=== PATIENT | male | born 1950 | race Caucasian/White ===

== ENCOUNTER 2021-11-06 17:15 | Inpatient (IN) | payer MEDICARE, OTHER ==
[~2021-11-06] VITALS: Ht 172.7 cm; Wt 169.3 kg
[2021-11-06] MEDS ORDERED: QUET25TA PO (17:29)
[2021-11-06] MEDS ORDERED: APIX5TAB PO (17:29)
[2021-11-06] MEDS ORDERED: FERR325T28 PO (17:29)
[2021-11-06] MEDS ORDERED: TAMS-3 PO (17:29)
[2021-11-06] MEDS ORDERED: CARV3.122 PO (17:29)
[2021-11-06] MEDS ORDERED: DOXY-326 PO (17:29)
[2021-11-06] MEDS ORDERED: QUET50TA PO (17:29)
[2021-11-06] MEDS ORDERED: ESCI10TA PO (17:29)
[2021-11-06] MEDS ORDERED: POTA10CA43 PO (17:29)
[2021-11-06] MEDS ORDERED: FURO-151 PO (17:29)
[2021-11-06] MEDS ORDERED: FUROSEMIDE 20 MG/2 ML VIAL IVP ONE (17:30)
[2021-11-06 17:47] LABS: HEMATOCRIT 33.8 % (36.7-47.1); MEAN CORPUSCULAR HEMOGLOBIN 28.3 uug (23.8-33.4); MEAN CORPUSCULAR VOLUME 86.4 fL (73.0-96.2); PLATELET COUNT (AUTO) 231 K/uL (152-348)
[2021-11-06 17:56] LABS: CARBON DIOXIDE 36 mmol/L (21-32); CHLORIDE 96 mmol/L (98-107); CREATININE 0.9 mg/dL (0.6-1.3); GLUCOSE 102 mg/dL (74-106); UREA NITROGEN, BLOOD 14 mg/dL (7-18)
[2021-11-06 18:09] LABS: ALANINE AMINOTRANSFERASE 28 U/L (16-63); ALKALINE PHOSPHATASE 275 U/L (50-136); ASPARTATE AMINOTRANSFERASE 36 U/L (15-37); BILIRUBIN,DIRECT 0.7 mg/dL (0.0-0.2); BILIRUBIN,TOTAL 1.1 mg/dL (0.2-1.0); TOTAL PROTEIN, SERUM 6.4 g/dL (6.4-8.2)
[2021-11-06] MEDS ORDERED: FUROSEMIDE 40 MG/4 ML VIAL ONE (18:09)
[2021-11-06] MEDS ORDERED: FUROSEMIDE 40 MG/4 ML VIAL IV ONE (18:30)
[2021-11-06] MEDS ORDERED: FUROSEMIDE 20 MG/2 ML VIAL ONE (18:40)
--- NOTE | 2021-11-06 19:00 | NUR ---
Assumed care of patient from day shift nurse. Patient AAOx3. In no aparent distress. On O2 aqt 2LPM via NC in place. Denies any SOB. O2 sat at 95%.
--- NOTE | 2021-11-06 19:44 | NUR ---
Incontinent care provided. Patient appears comfortable. Still with audible wheezing noted.
[2021-11-06] MEDS ORDERED: MAGNESIUM HYDROXIDE 30 ML LIQUID UDC PO PRN (20:30)
[2021-11-06] MEDS ORDERED: ONDANSETRON 4 MG/2 ML VIAL IV PRN (20:30)
[2021-11-06] MEDS ORDERED: NITROGLYCERIN 0.4 MG/TAB BOTTLE SL PRN (20:30)
[2021-11-06] MEDS ORDERED: ENOXAPARIN SODIUM 40 MG/0.4 ML DISP.SYRIN SQ SCH (20:30)
--- NOTE | 2021-11-06 20:50 | NUR ---
Pt. admitted to Telemetry unit room 302, under care of Dr. Joshi. Report given to RICCARDO Mujica. Belongs List completed.
[2021-11-06 21:00] VITALS: BP 124/82
[2021-11-06] MEDS: QUETIAPINE FUMARATE 25 MG TABLET PO SCH (21:22)
[2021-11-07] VITALS: BP_SYST 120; BP_SYST 133; BP_DIAS 57; BP_DIAS 79
--- NOTE | 2021-11-07 04:07 | NUR ---
PATIENT ON O2 @ 2L/M NC , EKG X 2 WAS DONE , PT HAD ORDER FOR BI/PAP AT [facility], ORDER SHOWING 13/12, ,RT PLACED PT ON R14, FIO2 @ 30%, TELLING CASTRO Bro WITH WITH XL MASK, VERY COOPERATIVE PT, DOING WELL.Jessica LOVE CHILDREN'S AIDE Addendum: 11/07/21 at 0409 by LAURA LOVE RT Amended: Links added.
--- NOTE | 2021-11-07 04:09 | NUR ---
PATIENT WAS PLACED ON BI/PAP @ 00:45 BY RT. Jessica LOVE RCP
[2021-11-07 04:30] VITALS: BP 126/58
[2021-11-07 06:16] LABS: HEMATOCRIT 30.5 % (36.7-47.1); MEAN CORPUSCULAR HEMOGLOBIN 28.6 uug (23.8-33.4); MEAN CORPUSCULAR VOLUME 85.7 fL (73.0-96.2); PLATELET COUNT (AUTO) 192 K/uL (152-348)
[2021-11-07] MEDS: PANTOPRAZOLE SODIUM 40 MG TABLET.DR PO SCH (06:21)
[2021-11-07 06:29] LABS: CREATININE 1.1 mg/dL (0.6-1.3); MAGNESIUM 1.7 mg/dL (1.8-2.4); PHOSPHOROUS 4.7 mg/dL (2.5-4.9)
[2021-11-07 06:32] LABS: POTASSIUM 2.3 mmol/L (3.5-5.1)
[2021-11-07 06:36] LABS: THYROID STIMULATING HORMONE 1.928 mIU/mL (0.358-3.740)
--- NOTE | 2021-11-07 06:43 | NUR ---
Critical Potassium of 2.3 called into [facility]. Orders for KCl 40MeQ IV, and to recheck potassium after given. Will endorse to day shift.
--- NOTE | 2021-11-07 06:49 | NUR ---
Pt slept throughout the night. Cpap placed on patient around 0000H. Denies pain at this time. No distress noted. IV site intact. Edwards inserted for strict I&O, tolerated well. Afib on monitor. Pt has ICD on left chest. Safety maintained throughout the shift. Will endorse to day shift.
[2021-11-07] MEDS: POTASSIUM CHLORIDE 50 ML IV SCH ×4 (07:03→11:14)
[2021-11-07] MEDS ORDERED: POTASSIUM CHLORIDE 20 MEQ POWDER PACKET PO ONE (07:30)
[2021-11-07] MEDS: ASPIRIN EC 81 MG TABLET.DR PO SCH (09:23)
[2021-11-07] MEDS: QUETIAPINE FUMARATE 25 MG TABLET PO SCH ×2 (09:23→21:27)
[2021-11-07] MEDS: TAMSULOSIN HCL 0.4 MG CAP.SR.24H PO SCH (09:23)
[2021-11-07] MEDS: POTASSIUM CHLORIDE 20 MEQ TAB.PRT.SR PO SCH (09:23)
[2021-11-07] MEDS: FERROUS SULFATE 325 MG TABEC PO SCH ×2 (09:23→17:46)
[2021-11-07] MEDS: POTASSIUM CHLORIDE 20 MEQ POWDER PACKET PO SCH ×3 (09:23→15:01)
[2021-11-07] MEDS: ESCITALOPRAM OXALATE 10 MG TABLET PO SCH (09:23)
[2021-11-07] MEDS: FUROSEMIDE 20 MG/2 ML VIAL IV SCH ×2 (09:25→21:26)
[2021-11-07] MEDS: CARVEDILOL 3.125 MG TABLET PO SCH ×2 (09:26→17:46)
[2021-11-07] MEDS: APIXABAN 5 MG TABLET PO SCH ×2 (09:27→17:49)
[2021-11-07] MEDS: MAGNESIUM SULFATE/D5W 100 ML IV SCH ×3 (09:28→11:44)
--- NOTE | 2021-11-07 10:43 | NUR ---
Pt is a/o x 4, receiving supplementation for magnesium and potassium. Will order redraw of levels per MD order once IV supplementation completed. Pt does not complain of pain or shortness of breath at this time. SpO2 95-96% on 2L NC, presenting with atrial fibrillation on telemetry with pacing. Pt has left chest internal heart monitor. Pt is on strict input output, 1000cc of clear yellow urine drained from lloyd catheter at this time. Edema still present but no pitting noted on either upper or lower extremities. Comfort measures provided, call light within reach. Will continue to monitor.
[2021-11-07 11:08] VITALS: BP 120/60
[2021-11-07 13:28] LABS: ABG BASE EXCESS 8.4 mmol/L; ABG HCO3 33.5 mmol/L; ABG PCO2 48.7 mmHg (35.0-45.0); ABG PH 7.455 (7.350-7.450); ABG PO2 58.8 mmHg (75.0-100.0); ABG SITE RIGHT RADIAL; ABG TOTAL HEMOGLOBIN 11.9 G/dL (13.5-18.0); COHb 0.8 % (0.5-1.5); MetHb 0.1 % (0.0-1.5); O2Hb 88.6 % (94.0-97.0); VENT MODE Nasal Cannula
[2021-11-07 14:30] LABS: CREATININE 0.9 mg/dL (0.6-1.3); POTASSIUM 2.9 mmol/L (3.5-5.1)
[2021-11-07 16:16] VITALS: BP 108/51
--- NOTE | 2021-11-07 19:00 | NUR ---
rRECD PT IN BED, ALERT ,ORIENTED X4, NO SOB NOTED,PLEASANT AND COOPERATIVE. IV SITE ON LEFT WRIST PATENT AND INTACT.OXYGEN INHALATION AT 2L /MIN VIA NASAL CANNULA.STRICT I/O OBSERVED AND MAINTAINED. BUENO CATH PATENT AMD DRAINING WELL
[2021-11-07 20:38] VITALS: BP 98/46
--- NOTE | 2021-11-07 21:00 | NUR ---
O TELE AFIB W PVC. RESTING IN BED,HS SNACKS TAKEN,REPOSITIONED FOR COMFORT.NEEDS ATTENDED TO.ICD ON LEFT CHEST WALL.VITAL SIGNS W/I NORMAL LIMITS.NO VOICED COMPLAINTS.
[2021-11-08 00:48] VITALS: BP 127/50
--- NOTE | 2021-11-08 02:02 | NUR ---
SLEPT AT SHORT INTERVALS, NOCTURNAL CPAP ON, TOLERATED WELL.
[2021-11-08 04:51] VITALS: BP 126/51
--- NOTE | 2021-11-08 05:09 | NUR ---
UNEVENTFUL NOC, RESTED FAIRLY WELL,KEPT WARM AND COMFORTABLE.REPOSITIONED FOR COMFORT. SACRAL, ABDOMINAL FOLD AND GROIN REDNESS NOTED.CALL LITE W/I REACH.STILL AFIB W/ V PACED ON TELE.
--- NOTE | 2021-11-08 07:00 | NUR ---
pt iv dislodged.
[2021-11-08] MEDS: PANTOPRAZOLE SODIUM 40 MG TABLET.DR PO SCH (07:08)
[2021-11-08 08:00] VITALS: BP 108/57
[2021-11-08] MEDS: CARVEDILOL 3.125 MG TABLET PO SCH ×2 (08:00→17:06)
[2021-11-08] MEDS: TAMSULOSIN HCL 0.4 MG CAP.SR.24H PO SCH (08:45)
[2021-11-08] MEDS: FERROUS SULFATE 325 MG TABEC PO SCH ×2 (08:45→16:36)
[2021-11-08] MEDS: ASPIRIN EC 81 MG TABLET.DR PO SCH (08:45)
[2021-11-08] MEDS: POTASSIUM CHLORIDE 20 MEQ TAB.PRT.SR PO SCH (08:45)
[2021-11-08] MEDS: ESCITALOPRAM OXALATE 10 MG TABLET PO SCH (08:45)
[2021-11-08] MEDS: QUETIAPINE FUMARATE 25 MG TABLET PO SCH ×2 (08:45→20:18)
[2021-11-08] MEDS: APIXABAN 5 MG TABLET PO SCH ×2 (08:46→16:40)
[2021-11-08] MEDS ORDERED: FUROSEMIDE 20 MG TABLET PO ONE (09:00)
[2021-11-08 11:28] LABS: HEMATOCRIT 31.7 % (36.7-47.1); MEAN CORPUSCULAR HEMOGLOBIN 28.2 uug (23.8-33.4); MEAN CORPUSCULAR VOLUME 86.5 fL (73.0-96.2); PLATELET COUNT (AUTO) 165 K/uL (152-348)
[2021-11-08 11:29] LABS: CREATININE 0.9 mg/dL (0.6-1.3); MAGNESIUM 2.2 mg/dL (1.8-2.4)
[2021-11-08 11:47] LABS: POTASSIUM 2.8 mmol/L (3.5-5.1)
[2021-11-08 12:00] VITALS: BP 127/42
[2021-11-08] MEDS ORDERED: POTASSIUM CHLORIDE 20 MEQ POWDER PACKET PO ONE (12:00)
--- NOTE | 2021-11-08 12:00 | NUR ---
midline insertion ordered for per, pending nurse arrival. pharmacy aware, MD aware. Critical potassium level reported by lab K- 2.8 critical low. aware.
[2021-11-08 16:00] VITALS: BP 149/65
[2021-11-08] MEDS: POTASSIUM CHLORIDE 50 ML IV SCH ×4 (16:35→20:17)
[2021-11-08] MEDS: ACETAMINOPHEN 325 MG TABLET PO PRN (20:18)
--- NOTE | 2021-11-08 20:30 | NUR ---
Hands off report to Lizette GU. Pt in no acute distress. Given pt his night time medication. Pt given Tylenol prn 650 mg. Pt stable.
[2021-11-08] MEDS ORDERED: FUROSEMIDE 20 MG/2 ML VIAL IV SCH (21:00)
--- NOTE | 2021-11-08 23:16 | NUR ---
Placed patient on ordered Bipap settings via XL full face mask. Mepilex in place for skin integrity. No signs or symptoms of respiratory distress noted at this time. Patient is alert and oriented: states he is comfortable. Leak varies 25-35, patient would not like mask tightened any more. Vitals within normal range. Alarms checked: on/ audible. Bipap machine connected to red outlet. Will continue to monitor throughout shift.
[2021-11-09 00:43] VITALS: BP 120/44
[2021-11-09 04:00] VITALS: BP 118/57
[2021-11-09] MEDS: PANTOPRAZOLE SODIUM 40 MG TABLET.DR PO SCH (06:47)
[2021-11-09 07:03] LABS: MEAN CORPUSCULAR HEMOGLOBIN 28.7 uug (23.8-33.4); MEAN CORPUSCULAR VOLUME 86.6 fL (73.0-96.2); PLATELET COUNT (AUTO) 183 K/uL (152-348)
[2021-11-09 07:27] LABS: POTASSIUM 3.6 mmol/L (3.5-5.1)
[2021-11-09 07:28] LABS: MAGNESIUM 2.4 mg/dL (1.8-2.4); PHOSPHOROUS 3.2 mg/dL (2.5-4.9)
--- NOTE | 2021-11-09 07:30 | NUR ---
Shift report: Pt slept throughout the night on CPAP13/12 [id number]% pt tolerated well received pt from wood pattern maker nurse aric no signs of respiratory distress noted. Medication given as ordered am blood suganr 80 will continue to monitor.
[2021-11-09] MEDS: CARVEDILOL 3.125 MG TABLET PO SCH ×2 (08:00→17:28)
[2021-11-09] MEDS: ESCITALOPRAM OXALATE 10 MG TABLET PO SCH (08:41)
[2021-11-09] MEDS: TAMSULOSIN HCL 0.4 MG CAP.SR.24H PO SCH (08:41)
[2021-11-09] MEDS: FERROUS SULFATE 325 MG TABEC PO SCH ×2 (08:41→16:40)
[2021-11-09] MEDS: POTASSIUM CHLORIDE 20 MEQ TAB.PRT.SR PO SCH ×2 (08:42→08:45)
[2021-11-09] MEDS: APIXABAN 5 MG TABLET PO SCH ×2 (08:42→16:39)
[2021-11-09] MEDS: ASPIRIN EC 81 MG TABLET.DR PO SCH (08:43)
--- NOTE | 2021-11-09 08:45 | NUR ---
Patient's Potassium level is 3.6. Scheduled Potassium wasn't administered in the AM because patient's potassium level WNL.
[2021-11-09] MEDS: FUROSEMIDE 20 MG/2 ML VIAL IV SCH (09:12)
[2021-11-09] MEDS: QUETIAPINE FUMARATE 25 MG TABLET PO SCH ×2 (09:18→20:35)
[2021-11-09 11:49] VITALS: BP 165/72
[2021-11-09 16:44] VITALS: BP 128/60
--- NOTE | 2021-11-09 19:30 | NUR ---
Received pt awake, alert and orientedx3. Pt in no acute distress. Iv intact. Pt lloyd intact and draining well. Pt on 2l nasal cannula. Safety and comfort provided. Will continue to monitor.
[2021-11-09 20:34] VITALS: BP 121/54
--- NOTE | 2021-11-09 22:44 | NUR ---
Received patient on 2LpmO2. BiPAP orders reviewed. Pt placed on ordered Bipap settings via XL full face mask. Mepilex in place for skin integrity. No signs or symptoms of respiratory distress noted at this time. Patient is alert and oriented.. Vitals within normal range. Alarms checked: on/ audible. Bipap machine connected to red outlet. Will continue to monitor throughout shift.
[2021-11-10 00:06] VITALS: BP 133/66
[2021-11-10 04:54] VITALS: BP 106/54
[2021-11-10] MEDS: PANTOPRAZOLE SODIUM 40 MG TABLET.DR PO SCH (06:03)
--- NOTE | 2021-11-10 06:51 | NUR ---
Pt shows no signs of acute distress. Pt on 2loxygen via nasal cannula. Iv intact. Edwards catheter intact. Prescribed medication given and pt tolerated it well. Safety and comfort provided. All needs are met. Will endorse to incoming nurse for continuity of care.
--- NOTE | 2021-11-10 08:00 | NUR ---
Discussed plan of care with pt to restrict. 1500ml /day fluid restriction. Pt getting diurese with lasix. Pt agreeable with plan of care. VESTA Edema +2 on UE and LE's. F/C draining well with cloudy sediment yellow oranged urine. Educated pt on pursed lip breathing. Pt able to return demonstrate. Call light is within reach.
[2021-11-10] MEDS: ESCITALOPRAM OXALATE 10 MG TABLET PO SCH (08:12)
[2021-11-10] MEDS: TAMSULOSIN HCL 0.4 MG CAP.SR.24H PO SCH (08:12)
[2021-11-10] MEDS: FERROUS SULFATE 325 MG TABEC PO SCH ×2 (08:12→17:36)
[2021-11-10] MEDS: FUROSEMIDE 20 MG/2 ML VIAL IV SCH (08:12)
[2021-11-10] MEDS: ASPIRIN EC 81 MG TABLET.DR PO SCH (08:12)
[2021-11-10] MEDS: CARVEDILOL 3.125 MG TABLET PO SCH ×2 (08:13→17:36)
[2021-11-10 08:14] LABS: HEMATOCRIT 30.7 % (36.7-47.1); MEAN CORPUSCULAR VOLUME 86.9 fL (73.0-96.2); PLATELET COUNT (AUTO) 166 K/uL (152-348)
[2021-11-10] MEDS: APIXABAN 5 MG TABLET PO SCH ×2 (08:14→17:39)
[2021-11-10 08:16] LABS: MAGNESIUM 2.3 mg/dL (1.8-2.4); POTASSIUM 3.6 mmol/L (3.5-5.1)
[2021-11-10] MEDS: POTASSIUM CHLORIDE 20 MEQ TAB.PRT.SR PO SCH (08:16)
[2021-11-10] MEDS: QUETIAPINE FUMARATE 25 MG TABLET PO SCH ×2 (08:16→20:10)
[2021-11-10 08:34] LABS: CREATININE 1.2 mg/dL (0.6-1.3)
[2021-11-10] MEDS ORDERED: POTASSIUM CHLORIDE 20 MEQ POWDER PACKET GT ONE (09:30)
[2021-11-10] MEDS ORDERED: POTASSIUM CHLORIDE 20 MEQ TAB.PRT.SR PO ONE (09:45)
[2021-11-10 11:55] VITALS: BP 119/53
--- NOTE | 2021-11-10 13:00 | NUR ---
Verified with Gabo gardiner re setup discharge for patient. Per casemaangement discharge with be withheld today secondary to Bariatric bed is needed in the facility that he will be coming to and and a a bariatric transfer bed with EMT still need to be set up.
[2021-11-10 16:00] VITALS: BP_SYST 113; BP_SYST 117; BP_DIAS 43; BP_DIAS 51
[2021-11-10] MEDS: FUROSEMIDE 40 MG TABLET PO SCH (17:36)
--- NOTE | 2021-11-10 18:21 | NUR ---
PT had 800 output in the f/c. Pt is in no acute distress. Z guard applied in abd folds. Call light is within reach.
--- NOTE | 2021-11-10 19:30 | NUR ---
Received pt awake, alert and orientedx4. Pt in no acute distress. Pt on 2l nasal cannula at 92%. Iv intact. Edwards catheter intact and draining well. Safety and comfort provided. Will continue to monitor.
[2021-11-10] MEDS: ACETAMINOPHEN 325 MG TABLET PO PRN (20:10)
[2021-11-10 20:22] VITALS: BP 153/56
[2021-11-11 00:11] VITALS: BP 122/66
[2021-11-11 04:00] VITALS: BP 97/56
[2021-11-11] MEDS: PANTOPRAZOLE SODIUM 40 MG TABLET.DR PO SCH (06:09)
--- NOTE | 2021-11-11 06:10 | NUR ---
Pt in no acute distress. Iv intact. Pt turned and repositioned. Iv intact. Pt lloyd catheter intact and draining yellow colored urine with sediments.Pt on controlled afib with vpacing . Safety and comfort provided. Will continue to monitor.
--- NOTE | 2021-11-11 08:00 | NUR ---
Pt on r/a @ 95%. PT denies any c/o pain. F/c draining dark urine. Mil LINe in left upper arm flushing well without any resistance. Call light is within reach. Fluid restriction @ 1500cc/day. Pt agreeable with plan of care.
[2021-11-11] MEDS: FUROSEMIDE 40 MG TABLET PO SCH (08:33)
[2021-11-11] MEDS: TAMSULOSIN HCL 0.4 MG CAP.SR.24H PO SCH (08:33)
[2021-11-11] MEDS: ESCITALOPRAM OXALATE 10 MG TABLET PO SCH (08:33)
[2021-11-11] MEDS: CARVEDILOL 3.125 MG TABLET PO SCH (08:33)
[2021-11-11] MEDS: ASPIRIN EC 81 MG TABLET.DR PO SCH (08:34)
[2021-11-11] MEDS: POTASSIUM CHLORIDE 20 MEQ TAB.PRT.SR PO SCH (08:34)
[2021-11-11] MEDS: FERROUS SULFATE 325 MG TABEC PO SCH (08:34)
[2021-11-11] MEDS: QUETIAPINE FUMARATE 25 MG TABLET PO SCH (08:44)
[2021-11-11] MEDS: APIXABAN 5 MG TABLET PO SCH (08:45)
[2021-11-11 12:09] VITALS: BP 143/81
--- NOTE | 2021-11-11 14:52 | NUR ---
Report given to EMT and LO GU from [facility] at r/a 33A. Pt Is in no acute distress. Instructed EMT to put pt on 1 lit n/c during transfer. VSS. MidLine taken of secondary to no IV abx ordered for discharge. Updated pictures taken.
== END 2021-11-11 14:50 | DRG 291 ==
LOC: ER 17:18 → TELE3 20:00
PROC: 5A09357 Assistance with Respiratory Ventilation, Less than 24 Consecutive Hours, Continuous Positive Airway Pressure (ICD-10-PCS; principal; 2021-11-07)
PROC: 05H633Z Insertion of Infusion Device into Left Subclavian Vein, Percutaneous Approach (ICD-10-PCS; 2021-11-08)
PROC: B547ZZA Ultrasonography of Left Subclavian Vein, Guidance (ICD-10-PCS; 2021-11-08)
DX: I11.0 Hypertensive heart disease with heart failure (principal); I50.33 Acute on chronic diastolic (congestive) heart failure; J96.01 Acute respiratory failure with hypoxia; J96.02 Acute respiratory failure with hypercapnia; I48.20 Chronic atrial fibrillation, unspecified; E66.2 Morbid (severe) obesity with alveolar hypoventilation; Z68.43 Body mass index [BMI] 50.0-59.9, adult; D63.8 Anemia in other chronic diseases classified elsewhere; E78.5 Hyperlipidemia, unspecified; E87.6 Hypokalemia; I42.9 Cardiomyopathy, unspecified; I27.20 Pulmonary hypertension, unspecified; E88.09 Other disorders of plasma-protein metabolism, not elsewhere classified; Z20.822 Contact with and (suspected) exposure to COVID-19; Z79.01 Long term (current) use of anticoagulants; Z95.810 Presence of automatic (implantable) cardiac defibrillator
CPT/HCPCS: 36415; 36600; 71045; 83735; 84100; 84443; 84484; 85025; 85730; 93005; 93307; 94660; 97161; A4663; G0378; J1940; J3475; J3480